=== PATIENT | male | born 1985 | race Caucasian/White ===

== ENCOUNTER 2016-09-18 07:45 | Emergency (ER) | payer OTHER ==
[~2016-09-18] VITALS: Ht 165.1 cm; Wt 88.5 kg
[2016-09-18 07:52] VITALS: TEMP 36.8; Ht 165.1 cm; Wt 88.5 kg
[2016-09-18] MEDS ORDERED: XYLOCAINE 1%/SOD BICARB 20 ML VIAL INFIL ONE (08:15)
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
[2016-09-18 09:57] VITALS: BP 125/95; PULSE 108; O2SAT 95
== END 2016-09-18 09:57 | disposition home or self-care (01) ==
LOC: EDBD 07:47 → C.EDA 07:47
DX: S01.91XA Laceration without foreign body of unspecified part of head, initial encounter (principal); V48.5XXA Car driver injured in noncollision transport accident in traffic accident, initial encounter